=== PATIENT | male | born 1950 | race Caucasian/White ===

== ENCOUNTER 2018-03-13 11:42 | Emergency (ER) | payer MEDICARE, BC ==
--- NOTE | 2018-03-13 12:14 | UC ---
Respiratory Complaint HPI - HPI Summary HPI Summary: Pt presents with dry cough for the last 1.5 weeks. He was prescribed tessalon without being seen by a friend of his. Helps some, but cough still persisting. Also mentions that over the last 2 weeks he has last 15 pounds without trying - says he just doesnt feel like eating. Denies fever, chills, sore throat, chest pain, MANNING, SOB, abdominal pain, n/v/d/c. - History of Current Complaint Stated Complaint: COUGH Time Seen by Provider: 03/13/18 12:13 Hx Obtained From: Patient Onset/Duration: Gradual Onset Character: Cough: Nonproductive - Allergies/Home Medications Allergies/Adverse Reactions: Allergies Allergy/AdvReac Type Severity Reaction Status Date / Time No Known Allergies Allergy Verified 03/13/18 12:12 Home Medications: Home Medications Aspirin 81 mg CHEW TAB* [Aspirin Low Dose TAB*] 81 mg PO DAILY 03/13/18 [ History Confirmed 03/13/18] Atorvastatin* [Lipitor*] 10 mg PO DAILY 03/13/18 [History Confirmed 03/13/18] Benzonatate CAP* [Tessalon 100 MG CAP*] 100 mg PO TID PRN 03/13/18 [History Confirmed 03/13/18] Cholecalciferol TAB* [Vitamin D TAB*] 1,000 unit PO DAILY 03/13/18 [History Confirmed 03/13/18] DULoxetine DR CAP* [Cymbalta CAP*] 60 mg PO DAILY 03/13/18 [History Confirmed ] Folic Acid TAB* [Folvite TAB*] 1 mg PO DAILY 03/13/18 [History Confirmed ] Hydroxychloroquine TAB* [Plaquenil TAB*] 200 mg PO BID 03/13/18 [History Confirmed 03/13/18] Methotrexate TAB* 3 tab PO Q7D 03/13/18 [History Confirmed 03/13/18] PMH/Surg Hx/FS Hx/Imm Hx - Additional Past Medical History Additional PMH: Rheumatoid arthritis Endocrine History: Dyslipidemia Cardiovascular History: Hypertension - Family History Known Family History: Positive: Hypertension - Social History Occupation: Retired Lives: With Family Alcohol Use: Occasionally Substance Use Type: None Review of Systems Constitutional: Negative Skin: Negative Eyes: Negative ENT: Negative Respiratory: Cough Cardiovascular: Negative Gastrointestinal: Negative Neurovascular: Negative Musculoskeletal: Negative Neurological: Negative Psychological: Negative All Other Systems Reviewed And Are Negative: Yes Physical Exam - Summary Physical Exam Summary: GENERAL: NAD. WDWN. No pain distress. SKIN: No rashes, sores, ulcers, masses, lesions. HEENT: Head: AT/NC Eyes: EOM intact. Conjunctiva clear without inflammation or discharge. Ears: Hearing grossly normal. TMs intact, no bulging, erythema, or edema. Nose: Nasal mucosa pink and moist. NTTP maxillary and frontal sinus. Throat: Posterior oropharynx without exudates, erythema, or tonsillar enlargement. Uvula midline. NECK: Supple. Nontender. No lymphadenopathy. CHEST: CTAB. No r/r/w. No accessory muscle use. Breathing comfortably and in no distress. CV: RRR. Without m/r/g. Pulses intact. Brisk cap refill. NEURO: Alert. CN II-XII grossly intact. PSYCH: Age appropriate behavior. Triage Information Reviewed: Yes Respiratory Course/Dx - Course Course Of Treatment: CXR: IMPRESSION: FINDINGS CONSISTENT WITH COPD, NO EVIDENCE FOR ACUTE FINDING. Will rx for prednisone and cough syrup at bedtime and have him f/u with his PCP for his unintentional weight loss. - Differential Dx/Diagnosis Provider Diagnoses: Bronchitis Discharge - Sign-Out/Discharge Documenting (check all that apply): Discharge/Admit/Transfer - Discharge Plan Condition: Stable Disposition: HOME Prescriptions: Codeine Phosphate/Guaifenesin [Guaifen-Codeine 100-10 mg/5 ml] 5 ml PO BEDTIME PRN #35 ml MDD 5mL PRN Reason: Cough predniSONE TAB* [Deltasone TAB*] 50 mg PO DAILY #5 tab Patient Education Materials: Acute Bronchitis (ED) Referrals: Jason Vanessa MD [Primary Care Provider] - Additional Instructions: If you develop a fever, shortness of breath, chest pain, new or worsening symptoms - please call your PCP or go to the ED. Your blood pressure was mildly elevated at todays visit. Please see your primary provider within 4 weeks for recheck and re-evaluation. 1) Please schedule a follow up within the next month to see your PCP regarding your recently unintentional weight loss. - Billing Disposition and Condition Condition: STABLE Disposition: HOME
[2018-03-13 12:16] VITALS: BP 130/89
--- NOTE | 2018-03-13 12:54 | RAD ---
INDICATION: Cough. COMPARISON: Comparison is made with a prior chest x-ray study from December 21, 2005. TECHNIQUE: Dual-energy PA and lateral views of the chest were obtained. FINDINGS: The heart is within normal limits in size. Mediastinal and hilar contours appear within normal limits. The lungs are clear. No pleural effusion is seen. There is flattening of the diaphragms most consistent with chronic obstructive pulmonary disease. IMPRESSION: FINDINGS CONSISTENT WITH COPD, NO EVIDENCE FOR ACUTE FINDING.
== END 2018-03-13 13:12 | disposition home or self-care (01) ==
LOC: UCCORT 11:42
DX: J40 Bronchitis, not specified as acute or chronic (principal)
CPT/HCPCS: 71046; 99212; G0463